=== PATIENT | male | born 1965 | race Caucasian/White ===

== ENCOUNTER 2022-02-27 14:46 | Outpatient (REF) | payer OTHER, SELFPAY ==
[2022-02-27 16:17] LABS: Abs Immature Grans 0.01 10^3/uL (0.0-0.06); Absolute Basophil Count 0.03 10^3/uL (0.0-0.2); Absolute Eosinophil Count 0.08 10^3/uL (0.0-0.7); Absolute Lymphocyte Count 1.82 10^3/uL (1.2-3.4); Absolute Monocyte Count 0.59 10^3/uL (0.1-0.8); Absolute Neutrophil Count 3.39 10^3/uL (1.2-6.7); Basophils % 0.5; Eosinophils % 1.4; HCT 48.2 % (40.0-50.0); HGB 16.1 g/dL (13.5-17.5); Immature Grans % 0.2; Lymphocytes % 30.7; MCH 31.6 pg (27.0-33.0); MCHC 33.4 % (32.0-36.0); MCV 94.7 fL (80-95); Neutrophils % 57.2; Nucleated RBC 0 %; Platelet Count 224 10^3/uL (130-400); RBC 5.09 10^6/uL (4.36-5.78); RDW 12.6 % (11.8-14.1); RDW-SD 44.5 fL; WBC 5.92 10^3/uL (4.4-10.8)
[2022-02-27 16:52] LABS: Hemoglobin A1C 5.9 % (<5.7)
[2022-02-27 16:58] LABS: ALT 54 U/L (16-63); AST 27 U/L (15-37); Alkaline Phosphatase 62 U/L (46-116); Anion Gap 6.7 mmol/L (3-11); BUN 17 mg/dL (7-18); Bilirubin, Total 0.7 mg/dL (0.2-1.0); CO2 29.3 mmol/L (21.0-32.0); CREATININE 0.9 mg/dL (0.70-1.30); Calcium 9.1 mg/dL (8.5-10.1); Chloride 104 mmol/L (98-107); Glucose 119 mg/dL (74-106); Potassium 4.3 mmol/L (3.5-5.1); Sodium 140 mmol/L (136-145); Total Protein 7.5 g/dL (6.4-8.2)
[2022-02-28 15:07] LABS: Calculated LDL 162 mg/dL (<100); Cholesterol 235 mg/dL (<200); HDL Cholesterol 50 mg/dL (40-60); Triglyceride 118 mg/dL (<150)
== END 2022-02-27 14:47 | disposition home or self-care (01) ==
LOC: NCHCN 14:46
PROVIDERS: PCP Family Medicine; Visit Provider Family Medicine
DX: E78.5 Hyperlipidemia, unspecified (principal); R73.03 Prediabetes; R10.9 Unspecified abdominal pain; R07.89 Other chest pain
CPT/HCPCS: 80053; 80061; 83036; 85025

== ENCOUNTER 2024-08-20 15:29 | Outpatient (REF) | payer OTHER, SELFPAY ==
[2024-08-20 21:37] LABS: HGB 16.2 g/dL (13.5-17.5); MCH 32.4 pg (27.0-33.0); MCHC 34.5 % (32.0-36.0); MCV 94 fL (80-95); MPV 10.8 fL (8.0-11.0); Platelet Count 252 10^3/uL (130-400); RDW 12.6 % (11.8-14.1); RDW-SD 43.7 fL; WBC 6.22 10^3/uL (4.4-10.8)
[2024-08-20 21:52] LABS: ALT 48 U/L (16-63); AST 28 U/L (15-37); Albumin 3.7 g/dL (3.4-5.0); Alkaline Phosphatase 67 U/L (46-116); Anion Gap 11.7 mmol/L (3-11); BUN 11 mg/dL (7-18); Bilirubin, Total 0.47 mg/dL (0.2-1.0); CO2 24.3 mmol/L (21.0-32.0); CREATININE 0.9 mg/dL (0.70-1.30); Calcium 9.2 mg/dL (8.5-10.1); Calculated LDL 149 mg/dL (<100); Chloride 103 mmol/L (98-107); Cholesterol 233 mg/dL (<200); Glucose 134 mg/dL (74-106); HDL Cholesterol 48 mg/dL (40-60); Potassium 3.9 mmol/L (3.5-5.1); Sodium 139 mmol/L (136-145); Total Protein 7.2 g/dL (6.4-8.2); Triglyceride 184 mg/dL (<150)
[2024-08-23 09:17] LABS: PSA, Screening 0.5 ng/mL (<=3.5)
== END 2024-08-20 15:30 | disposition home or self-care (01) ==
LOC: NCHCN 15:29
PROVIDERS: PCP Family Medicine; Visit Provider Nurse Practitioner Family
DX: R10.9 Unspecified abdominal pain (principal); Z12.5 Encounter for screening for malignant neoplasm of prostate; E55.9 Vitamin D deficiency, unspecified
CPT/HCPCS: 80053; 80061; 84153; 85027; 83036

== ENCOUNTER 2025-04-08 09:55 | Outpatient (REF) | payer OTHER, SELFPAY ==
[2025-04-08 15:19] LABS: ESR 9 mm/hr (0-20)
[2025-04-08 15:39] LABS: Calculated LDL 170 mg/dL (<100); Cholesterol 238 mg/dL (<200); HDL Cholesterol 49 mg/dL (>or=40); TSH (W/Ref FT4) 3.68 uIU/mL (0.36-3.74); Triglyceride 96 mg/dL (<150)
[2025-04-08 22:06] LABS: Rheumatoid Factor <8.6 IU/mL (<12.0)
[2025-04-08 23:04] LABS: PSA, Screening 0.5 ng/mL (<=3.5)
[2025-04-11 10:21] LABS: Lyme Ab w Rflx to Lyme Confirm Negative (Negative)
[2025-04-11 13:51] LABS: ANA Interpretation Negative (Negative)
== END 2025-04-08 09:56 | disposition home or self-care (01) ==
LOC: NCHCN 09:55
PROVIDERS: PCP Family Medicine; Visit Provider Nurse Practitioner Family
DX: R73.03 Prediabetes (principal); E78.5 Hyperlipidemia, unspecified; R68.82 Decreased libido; M25.59 Pain in other specified joint
CPT/HCPCS: 80061; 84153; 84403; 85652; 83036; 84443; 86038; 86431; 86618

== ENCOUNTER 2025-04-18 13:26 | Outpatient (REF) | payer OTHER, SELFPAY ==
[2025-05-03 12:01] LABS: Testosterone, Free 7.28 ng/dL (3.87-14.7); Testosterone, Total 464 ng/dL (240-950)
== END 2025-04-18 13:27 | disposition home or self-care (01) ==
LOC: NCHCN 13:26
PROVIDERS: PCP Family Medicine; Visit Provider Nurse Practitioner Family
DX: R68.82 Decreased libido (principal)
CPT/HCPCS: 84402; 84403

== ENCOUNTER 2025-09-09 12:11 | Outpatient (REF) | payer OTHER, SELFPAY ==
[2025-09-09 15:51] LABS: ALT 33 U/L (16-63); AST 32 U/L (15-37); Albumin 3.7 g/dL (3.4-5.0); Alkaline Phosphatase 65 U/L (46-116); Anion Gap 7.7 mmol/L (3-11); BUN 10 mg/dL (7-18); Bilirubin, Total 0.7 mg/dL (0.2-1.0); CO2 29.3 mmol/L (21.0-32.0); Calcium 9.0 mg/dL (8.5-10.1); Chloride 103 mmol/L (98-107); Estimated GFR 105.49 (mL/min/1.73m2); Glucose 119 mg/dL (74-106); Potassium 4.8 mmol/L (3.5-5.1); Sodium 140 mmol/L (136-145); Total Protein 7.3 g/dL (6.4-8.2)
== END 2025-09-09 12:12 | disposition home or self-care (01) ==
LOC: NCHCN 12:11
PROVIDERS: PCP Nurse Practitioner Family; Visit Provider Nurse Practitioner Family
DX: I10 Essential (primary) hypertension (principal)
CPT/HCPCS: 80053